=== PATIENT | female | born 1955 | race Caucasian/White ===

== ENCOUNTER 2024-07-02 02:52 | Inpatient (IN) | payer OTHER ==
[2024-07-02] MEDS ORDERED: ONDANSETRON 4 MG/2 ML VIAL ONE (03:48)
[2024-07-02] MEDS ORDERED: morphine SULFATE 4 MG/ML VIAL ONE ×2 (03:48→11:38)
[2024-07-02] MEDS: morphine SULFATE 4 MG/ML VIAL IVPUSH ONE (03:52)
[2024-07-02] MEDS: LACTATED RINGERS SOLUTION 1000 ML INFUS.BAG IV ONE ×2 (03:53→05:33)
[2024-07-02] MEDS: ONDANSETRON 4 MG/2 ML VIAL IVPUSH ONE (03:53)
[2024-07-02 04:07] LABS: VENOUS BASE EXCESS -0.7 mmol/L (-2-2); VENOUS O2 SATURATION 92.6 % (70-80); VENOUS PCO2 35.6 mmHg (38-52); VENOUS PH 7.428 (7.310-7.410)
[2024-07-02 04:11] LABS: BASO % 0.9 % (0-2.0); EOS % 0.5 % (0-4.5); HEMATOCRIT 47.1 % (32.4-45.2); HEMOGLOBIN 15.9 GM/dL (10.7-15.3); LYMPH % 22.6 % (8-40); MCH 28.1 pg (25.7-33.7); MCHC 33.7 g/dl (32.0-36.0); MEAN CELL VOLUME 83.4 fl (80-96); MEAN PLT VOLUME 8.2 fl (7.5-11.1); MONO % 3.7 % (3.8-10.2); NEUT % 72.3 % (42.8-82.8); PLATELET COUNT 246 10^3/uL (134-434); RBC 5.65 M/mm3 (3.60-5.2); RDW 13.5 % (11.6-15.6)
[2024-07-02 04:24] LABS: INR 1.02 (0.83-1.09); PROTHROMBIN TIME (PATIENT) 11.5 SEC (9.7-13.0)
[2024-07-02 04:27] LABS: ACTIVATED PTT 26.7 SECONDS (25.2-36.5)
[2024-07-02 04:30] LABS: ALBUMIN 3.6 g/dl (3.4-5.0); BLOOD UREA NITROGEN 15.3 mg/dL (7-18); CALCIUM 9.2 mg/dL (8.5-10.1); MAGNESIUM 1.8 mg/dL (1.8-2.4)
[2024-07-02 04:36] LABS: BILIRUBIN,TOTAL 0.6 mg/dL (0.2-1); CREATININE 0.8 mg/dL (0.55-1.3); TOT PROT 6.9 g/dl (6.4-8.2)
[2024-07-02 04:38] LABS: N-TERMINAL BNP 173.2 pg/ml (5-125)
[2024-07-02 05:27] LABS: HIV INTERPRETATION NEGATIVE (NEGATIVE)
[2024-07-02] MEDS: INSULIN REGULAR HUMAN 100 UNITS/ML *VIAL IVPUSH ONE (05:34)
[2024-07-02] MEDS ORDERED: MORPHINE SULFATE 2 MG/ML SYRINGE ONE (07:25)
[2024-07-02] MEDS: morphine CARPU-JECT 2 MG/1 ML DISP.SYRIN IVPUSH ONE (07:29)
[2024-07-02] MEDS: morphine CARPU-JECT 4 MG/1 ML DISP.SYRIN IVPUSH ONE (11:42)
[2024-07-02] MEDS ORDERED: ONDANSETRON 4 MG/2 ML VIAL IVPUSH PRN (18:00)
[2024-07-02] MEDS ORDERED: PANTOPRAZOLE SODIUM 40 MG VIAL ONE (18:05)
[2024-07-02] MEDS: PANTOPRAZOLE SODIUM 40 MG VIAL IVPUSH SCH (18:20)
[2024-07-02] MEDS: D5-1/2NS+20 MEQ KCL - 20 MEQ/1,000 ML INFUS.BAG IV SCH (18:20)
[2024-07-02] MEDS ORDERED: DOXEPIN HCL 50 MG CAPSULE PO SCH (19:00)
[2024-07-02] MEDS ORDERED: HYDROmorphone HCL CARPU-JECT 2 MG/1 ML DISP.SYRIN ONE (19:26)
[2024-07-02] MEDS: HYDROmorphone HCL CARPU-JECT 2 MG/1 ML DISP.SYRIN IVPB PRN (19:36)
[2024-07-02] MEDS: DOXEPIN HCL 25 MG CAPSULE PO SCH (19:36)
[2024-07-02] MEDS: HEPARIN NA (PORCINE) 5,000 UNITS/ML 1ML VIAL SQ SCH (21:40)
[2024-07-02] MEDS: cloNIDine HCL 0.1 MG TABLET PO SCH (21:40)
[2024-07-02] MEDS: SODIUM CHLORIDE 0.45%/POT 20 MEQ/1,000 ML INFUS.BAG IV SCH (21:42)
[2024-07-03 05:45] VITALS: RESP 18
[2024-07-03 10:02] LABS: BASO % 0.7 % (0-2.0); EOS % 2.7 % (0-4.5); HEMATOCRIT 37.6 % (32.4-45.2); HEMOGLOBIN 12.6 GM/dL (10.7-15.3); LYMPH % 51.3 % (8-40); MCH 28.4 pg (25.7-33.7); MCHC 33.5 g/dl (32.0-36.0); MEAN CELL VOLUME 84.7 fl (80-96); MEAN PLT VOLUME 8.7 fl (7.5-11.1); NEUT % 41.3 % (42.8-82.8); PLATELET COUNT 200 10^3/uL (134-434); RBC 4.44 M/mm3 (3.60-5.2); RDW 13.8 % (11.6-15.6); WHITE BLOOD COUNT 8.3 K/mm3 (4.0-10.0)
[2024-07-03 10:06] LABS: INR 1.09 (0.83-1.09); PROTHROMBIN TIME (PATIENT) 12.3 SEC (9.7-13.0)
[2024-07-03 10:25] LABS: POTASSIUM 4.1 mmol/L (3.5-5.1)
[2024-07-03 10:29] LABS: ALBUMIN 3.1 g/dl (3.4-5.0); BLOOD UREA NITROGEN 13.5 mg/dL (7-18); CALCIUM 8.4 mg/dL (8.5-10.1)
[2024-07-03 10:32] LABS: CREATININE 0.8 mg/dL (0.55-1.3)
[2024-07-03 10:34] LABS: BILIRUBIN,TOTAL 0.7 mg/dL (0.2-1); TOT PROT 6.1 g/dl (6.4-8.2)
[2024-07-04 09:10] LABS: HEMATOCRIT 39.1 % (32.4-45.2); HEMOGLOBIN 13.3 GM/dL (10.7-15.3); MCH 28.4 pg (25.7-33.7); MEAN CELL VOLUME 83.5 fl (80-96); MEAN PLT VOLUME 7.9 fl (7.5-11.1); PLATELET COUNT 195 10^3/uL (134-434); RBC 4.69 M/mm3 (3.60-5.2); RDW 13.1 % (11.6-15.6); WHITE BLOOD COUNT 6.1 K/mm3 (4.0-10.0)
[2024-07-04 09:31] LABS: POTASSIUM 3.9 mmol/L (3.5-5.1)
[2024-07-04 09:35] LABS: ALBUMIN 3.1 g/dl (3.4-5.0); BLOOD UREA NITROGEN 9.6 mg/dL (7-18); CALCIUM 9.1 mg/dL (8.5-10.1)
[2024-07-04 09:38] LABS: CREATININE 0.7 mg/dL (0.55-1.3)
[2024-07-04 09:40] LABS: BILIRUBIN,TOTAL 0.7 mg/dL (0.2-1); TOT PROT 6.3 g/dl (6.4-8.2)
[2024-07-05 13:58] VITALS: BMI 36.9
[2024-07-07 12:47] VITALS: PULSE 81; TEMP 98.6
[2024-07-07 14:16] VITALS: BP 135/75
== END 2024-07-07 17:06 | disposition home or self-care (01) | DRG 392 ==
LOC: JER 02:52 → JERBED 11:38 → J6S 20:10
PROVIDERS: ADMIT Family Medicine; ATTEND Family Medicine
DX: K52.9 Noninfective gastroenteritis and colitis, unspecified (principal); I10 Essential (primary) hypertension; E11.9 Type 2 diabetes mellitus without complications; J44.9 Chronic obstructive pulmonary disease, unspecified; K76.0 Fatty (change of) liver, not elsewhere classified; D72.829 Elevated white blood cell count, unspecified; I25.10 Atherosclerotic heart disease of native coronary artery without angina pectoris; K21.9 Gastro-esophageal reflux disease without esophagitis; F41.9 Anxiety disorder, unspecified; E78.5 Hyperlipidemia, unspecified; F32.A Depression, unspecified; E86.0 Dehydration; I45.6 Pre-excitation syndrome
CPT/HCPCS: 0241U-QW; 36415; 71045-TC-FY; 74174-TC; 74176-TC; 74177-TC; 76705-TC; 80053; 82010; 82550; 82803; 82962; 83036; 83605; 83690; 83735; 83880; 84443; 84484; 85025; 85027; 85610; 85651; 85730; 86140; 86704; 86708; 86803; 87340; 87389; 87517; 93005; 93010; 99285-25; J1644; J3480; Q9967